=== PATIENT | female | born 1980 | race Caucasian/White ===

== ENCOUNTER 2016-08-04 19:08 | Emergency (ER) | payer OTHER ==
--- NOTE | 2016-08-04 21:44 | ED ORDER SUMMARY ---
..... Patient: MARLYN RILEY OrderSheet [facility] VisitID: [id number] [address] [place] [address] 36y, F Registration Date/Time: 08/04/2016 ORDER SHEET Weight: 97.9 kg (stated) Allergies: Vancomycin, Erythromycin GENERAL ORDERS: CBC w Diff Urgent (19:31 08/04/2016 HBivens A.R.N.P.) (Ack 19:37 CHagerty ER Booth Supervisor) (20:14 SRoberts R.N.) CMP Urgent (19:08/04/2016 HBivens A.R.N.P.) (Ack 19:37 CHagerty ER Booth Supervisor) (20:14 SRoberts R.N.) UA-Culture if indicated Urgent (19:08/04/2016 HBivens A.R.N.P.) (Ack 19:37 CHagerty ER Booth Supervisor) (19:38 JDeElena R.N.) Amylase Urgent (19:31 08/04/2016 HBivens A.R.N.P.) (Ack 19:37 CHagerty ER Booth Supervisor) (20:14 SRoberts R.N.) Lipase Urgent (19:08/04/2016 HBivens A.R.N.P.) (Ack 19:37 CHagerty ER Booth Supervisor) (20:14 SRoberts R.N.) Urine Urgent (19:08/04/2016 HBivens A.R.N.P.) (Ack 19:37 CHagerty ER Booth Supervisor) (19:38 JDeElena R.N.) Pelvic Exam Setup (19:31 08/04/2016 HBivens A.R.N.P.) (Ack 19:37 CHagerty ER Booth Supervisor) (19:38 NHouse ER Tech1) GC/Chlamydia (Cervix) (cervix) Urgent (19:58 08/04/2016 HBivens A.R.N.P.) (Ack 20:09 CHagerty ER Booth Supervisor) (20:15 SRoberts R.N.) Wet Prep (Cervix) (cervix) Urgent (19:59 08/04/2016 HBivens A.R.N.P.) (Ack 20:09 CHagerty ER Booth Supervisor) (20:15 SRoberts R.N.) US OB 1st Trimester w Transvag (unknown) Urgent (20:51 08/04/2016 HBivens A.R.N.P.) (Ack 20:54 CHagerty ER Booth Supervisor) (21:45 Izabella) Type & Rh Urgent (20:51 08/04/2016 HBivens A.R.N.P.) (Ack 20:54 CHagerty ER Booth Supervisor) (21:25 ALawrence ER Tech1) Serum Quantitative Urgent (20:51 08/04/2016 HBivens A.R.N.P.) (Ack 20:54 CHagerty ER Booth Supervisor) (21:25 ALawrence ER Tech1) Vitals (Temp) (21:47 08/04/2016 HBivens A.R.N.P.) (Ack 21:51 JDeElena R.N.) (22:00 JAlanElena R.N.) MEDICATION ORDERS: IV FLUIDS: IV NS : initial bolus 1000 mL (1000 mL/hr), then none - (NOW) (19:31 08/04/2016 HBivens A.R.N.P.) (20:15 SRoberts R.N.) Zofran IV 4 mg (NOW) (19:31 08/04/2016 HBivens A.R.N.P.) (Ack 20:16 SRoberts R.N.) (21:52 SRoberts R.N.) IV Saline Lock (19:31 08/04/2016 HBivens A.R.N.P.) (20:15 SRoberts R.N.) ORDER SHEET NOTES: [Electronically signed by Melchor Jessica R.N. (22:01 08/04/2016)] [Electronically signed by Gina BellamyR.N.P. (22:16 08/04/2016)] [Electronically locked/signed by Melchor Jessiac R.N. (22:08/04/2016)]
--- NOTE | 2016-08-04 21:44 | ED ORDER SUMMARY ---
..... Patient: MARLYN RILEY OrderSheet [facility] VisitID: [id number] [address] [place] [address] 36y, F Registration Date/Time: 08/04/2016 ORDER SHEET Weight: 97.9 kg (stated) Allergies: Vancomycin, Erythromycin GENERAL ORDERS: CBC w Diff Urgent (19:31 08/04/2016 HBivens A.R.N.P.) (Ack 19:37 CHagerty ER Binding Cementer French Cord) (20:14 SRoberts R.N.) CMP Urgent (19:08/04/2016 HBivens A.R.N.P.) (Ack 19:37 CHagerty ER Binding Cementer French Cord) (20:14 SRoberts R.N.) UA-Culture if indicated Urgent (19:08/04/2016 HBivens A.R.N.P.) (Ack 19:37 CHagerty ER Binding Cementer French Cord) (19:38 JDeElena R.N.) Amylase Urgent (19:31 08/04/2016 HBivens A.R.N.P.) (Ack 19:37 CHagerty ER Binding Cementer French Cord) (20:14 SRoberts R.N.) Lipase Urgent (19:08/04/2016 HBivens A.R.N.P.) (Ack 19:37 CHagerty ER Binding Cementer French Cord) (20:14 SRoberts R.N.) Urine Urgent (19:08/04/2016 HBivens A.R.N.P.) (Ack 19:37 CHagerty ER Binding Cementer French Cord) (19:38 JDeElena R.N.) Pelvic Exam Setup (19:31 08/04/2016 HBivens A.R.N.P.) (Ack 19:37 CHagerty ER Binding Cementer French Cord) (19:38 NHouse ER Tech1) GC/Chlamydia (Cervix) (cervix) Urgent (19:58 08/04/2016 HBivens A.R.N.P.) (Ack 20:09 CHagerty ER Binding Cementer French Cord) (20:15 SRoberts R.N.) Wet Prep (Cervix) (cervix) Urgent (19:59 08/04/2016 HBivens A.R.N.P.) (Ack 20:09 CHagerty ER Binding Cementer French Cord) (20:15 SRoberts R.N.) US OB 1st Trimester w Transvag (unknown) Urgent (20:51 08/04/2016 HBivens A.R.N.P.) (Ack 20:54 CHagerty ER Binding Cementer French Cord) (21:45 Izabella) Type & Rh Urgent (20:51 08/04/2016 HBivens A.R.N.P.) (Ack 20:54 CHagerty ER Binding Cementer French Cord) (21:25 ALawrence ER Tech1) Serum Quantitative Urgent (20:51 08/04/2016 HBivens A.R.N.P.) (Ack 20:54 CHagerty ER Binding Cementer French Cord) (21:25 ALawrence ER Tech1) Vitals (Temp) (21:47 08/04/2016 HBivens A.R.N.P.) (Ack 21:51 JDeElena R.N.) (22:00 JAlanElena R.N.) MEDICATION ORDERS: IV FLUIDS: IV NS : initial bolus 1000 mL (1000 mL/hr), then none - (NOW) (19:31 08/04/2016 HBivens A.R.N.P.) (20:15 SRoberts R.N.) Zofran IV 4 mg (NOW) (19:31 08/04/2016 HBivens A.R.N.P.) (Ack 20:16 SRoberts R.N.) (21:52 SRoberts R.N.) IV Saline Lock (19:31 08/04/2016 HBivens A.R.N.P.) (20:15 SRoberts R.N.) ORDER SHEET NOTES: [Electronically signed by Melchor Jessica R.N. (22:01 08/04/2016)] [Electronically signed by Gina BellamyR.N.P. (22:16 08/04/2016)] [Electronically locked/signed by Melchor Jessica R.N. (22:08/04/2016)]
--- NOTE | 2016-08-04 21:44 | ED NURSING NOTES ---
Clinical Report - Nurses [facility] [address] [place] [address] 08/04/2016 19:11 Patient: MICA RILEY TRIAGE Triage time 19:25. Acuity: LEVEL 3. Chief Complaint: ABDOMINAL PAIN and (Onset this morning. Located on R side of abdomen, reports pain is shooting down leg. Says pain is worse than her natural child , pain comes in waves. Reports she has been bled 5 times in the last month and she did have a positive at home test. States she recently treated self for yeast infection. States she recently broke up with her boyfriend because he was cheating on her, unsure if she has STI. She says she has had numerous miscarriages before but this is not what it feels like.). Alert. SEPSIS SCREEN: Sepsis Screen: negative. --19:34 Melchor Jessica R.N. 19:24 08/04/16. BP: 123/79 (regular adult cuff) taken on the left arm, via an automated monitor, while lying. HR: 91 (normal rate). RR: 16 (regular, unlabored and normal). O2 saturation: 98% on room air. Temp: 100.3 F (oral). Pain level now: 8/10. --19:34 Melchor Jessica R.N. Weight: 97.9 kg stated. Height/Length: 63 inches Per Patient. BMI: 38.2. --19:27 Melchor Jessica R.N. Medications Anxiolytic (Cymbalta or Celexa). --19:32 Melchor Jessica R.N. Allergies Vancomycin.(Anaphylaxis) --19:33 Melchor Jessica R.N. Erythromycin. ("shuts kidneys down.") --19:33 Melchor Jessica R.N. Medication/allergy information source: the patient. --19:34 Melchor Jessica R.N. History Arrived by private vehicle. Historian: patient. Accompanied by family. Primary physician (Dr. Jeronimo at [facility]). This started today. She has had nausea and vomiting. She has had pelvic pain (Describes pain as labor pain.). The pain has been in the right lower quadrant. No chills, fever, sweating episodes, difficulty with urination or vaginal discharge. No vaginal discomfort. Treatment DISTRIBUTION CENTER MANAGER: None. PAST MEDICAL HX: 10. Para 2. Abortions 8. Sexual history - sexually active. Currently . SOCIAL HX: Current every day heavy tobacco smoker (cigarette)- less than 1 pack per day. History of drug use: marijuana. Recently used drugs today. No alcohol use. She has not traveled outside the [place] The patient was not exposed to MRSA. No infectious disease exposure. ABUSE ASSESSMENT: Abuse assessment: The patient was asked "Do you feel safe in your home?" and "Has anyone hurt you or threatened to hurt you?". No report of abuse. SELF HARM ASSESSMENT: A self harm assessment was performed. The patient answered "no" to the question "Do you have thoughts of harming or killing yourself?" and "Have you recently had thoughts about harming or killing others?". FALL RISK ASSESSMENT: Fall risk assessment completed. No fall risk identified. NUTRITIONAL RISK ASSESSMENT: The nutritional risk assessment revealed no deficiencies. FUNCTIONAL ASSESSMENT: Functional assessment: no impairments noted. LEARNING NEEDS ASSESSMENT: The learning needs assessment revealed no barriers. SKIN INTEGRITY ASSESSMENT: Skin integrity risk assessment completed. No skin integrity risk identified. --19:34 Melchor Jessica R.N. PROBLEMS: Anxiety Reaction. --19:33 Melchor Jessica R.N. ADDITIONAL SURGERIES: Cholecystectomy. --19:33 Melchor Jessica R.N. Assessment GENERAL / NEURO / PSYCH: Alert. Oriented X 4. Appears in pain. [place] Coma Scale: 15- eyes open spontaneously (4); best verbal response- oriented x 4 (5); best motor response- obeys commands (6). Patient appears calm and cooperative. RESPIRATORY: Respirations not labored. SKIN: Skin is warm and dry. --19:34 Melchor Jessica R.N. Interventions ID band on patient. To treatment room. --19:34 Melchor Jessica R.N. NURSING PROGRESS NOTES The initial plan of care for this patient has been created This plan of care was discussed with the patient. Pulse oximeter and NIBP monitor placed on patient. Patient gowned. Warming measures: blanket applied. Reassurance given to the patient. Two patient identifiers checked. Call light placed in reach. Side rails up x 1. Bed placed in lowest position. Brakes of bed on. --19:34 Melchor Jessica R.N. Patient ID band checked for patient name and birthdate. Instructions provided to collect clean catch urine and patient verbalized understanding. Clean catch urine collected with return of yellow-colored cloudy urine; sample sent to lab for urinalysis and HCG. Specimen labeled in the presence of the patient. --19:38 Melchor Jessica R.N. 20:05 08/04/2016 Site #1 started via IV in the right antecubital space with an 20g angiocath, with aseptic technique and good blood return; one attempt. Blood drawn: rainbow set. Labeled in the presence of the patient and sent to the lab. Saline lock flushed. --20:15 Clary Minaya R.N. 20:05 08/04/2016 Started bag #1 1000 mL IV Fluids IV NS (Saline); at 1000 mL/hr over 1 hour(s) via site #1 via IV pump. Allergies verified and confirmed 5 rights. IV patency established. IV site checked: no pain, redness, or swelling. IV flushed thoroughly pre- and post-medication administration. --20:15 Clary Minaya R.N. 20:40 08/04/16. BP: 107/49. HR: 72. RR: 16. O2 saturation: 99%. --20:44 Ruby Ge ER Tech1 20:05 08/04/2016 Zofran (Ondansetron HCl) IVP 4 mg given over 1 minute(s) via site #1. Allergies verified and confirmed 5 rights. IV patency established. IV site checked: no pain, redness, or swelling. IV flushed thoroughly pre- and post-medication administration. IVP given by RN. --21:52 Clary Minaya R.N. 21:52 08/04/16. BP: 124/68. HR: 97. RR: 16. O2 saturation: 98%. Pain level now 12/09. --21:54 Ruby Ge, SHAHZAD Tech1 22:00 08/04/2016 Zofran IVP Response: no adverse reaction pain is improving. Symptoms have improved. --22: Melchor Jessica R.N. 22:08/04/2016 IV Fluids IV NS Discontinued: bag #1 completed upon discharge. Total amount infused: 1000 mL. IV patency established. IV site checked: no pain, redness, or swelling. IV flushed thoroughly. --22: Melchor Jessica R.N. DISPOSITION / DISCHARGE Departure time: 21:57. Condition at departure: stable. The goals identified in the patient's plan of care were met. No learning barriers present. Discharge instructions provided and reviewed with the patient. Reviewed medication(s) side effects, precautions, dosing and course information. Prescription(s) given to the patient (Mica verbalizes importance of not driving and/or operating heavy machinery while taking muscle relaxants. She verbalizes safe, proper use for optimal pain management at home.). Activity restrictions (rest) reviewed. Patient verbalized understanding. Written instructions provided in Croatian. ( Mica verbalizes understanding of all d/c instructions including need to f/u with PCP. She has no questions and voices no concerns at this time.). The patient was discharged by the nurse practitioner. She was discharged home and unaccompanied at time of discharge. She left the Emergency Department ambulatory and via private vehicle. Patient driving. NAEL COMA SCORE: [place] Coma Scale: 15- eyes open spontaneously (4); best verbal response- oriented x 4 (5); best motor response- obeys commands (6). --21:57 Melchor Jessica R.N. 22:00 08/04/2016 Site #1 removed upon discharge. Catheter intact. Bandaid applied (Bleeding controlled.). --: Melchor Jessica R.N. ( See Progress Notes for D/C VS.). --22: Melchor Jessica R.N. 22:00 08/04/16. BP: deferred. HR: deferred. RR: deferred. O2 saturation: deferred. Temp: deferred. Pain level now deferred. --22: Melchor Jessica R.N. Locked/Released at 08/04/2016 22:01 by Melchor Jessica R.N.
--- NOTE | 2016-08-04 21:44 | ED CLINICAL REPORT ---
Clinical Report - Physicians/Mid Levels [facility] [address] [place] [address] 08/04/2016 19:11 Patient: MARLYN RILEY Time Seen: 19:20; initial patient contact, initial documentation, patient care assumed. Arrived- By private vehicle. Historian- patient. HISTORY OF PRESENT ILLNESS Chief Complaint: ABDOMINAL PAIN. At its maximum, severity described as severe. When seen in the E.D., severity described as severe. Modifying factors. Not worsened by anything. Not relieved by anything. 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 It is described as "pain", sharp and stabbing. It is described as located in the right flank and the right abdomen, right lower quadrant and right pelvis and radiating to the right lower back. The patient has had nausea. No loss of appetite or diarrhea. She has had severe vomiting (today). The vomiting has occurred numerous times and has been bilious. No feculent emesis, blood-tinged emesis, coffee-grounds emesis, frankly bloody emesis or unusually dark emesis. (also concerned about std, because partner cheated on her, but denies any vag dc). No recent travel. Similar symptoms previously: None. Recent medical care: Not recently seen/assessed. REVIEW OF SYSTEMS No constipation, black stools, hematemesis, difficulty with urination or pain with urination. No urinary frequency, bloody stools, fever, chest pain or difficulty breathing. She has had abnormal bleeding (no bleeding now, irregular periodss that last 2 mos). Her periods have been recently irregular and more frequent than normal. She has had bleeding between periods. No abdominal pain. No control. She is not postmenopausal. Currently : , pt states this is at least her 10th or more In 1st trimester. confirmed with home test. Has had no care. All systems otherwise negative, except as recorded above. PAST HISTORY See nurses notes. PROBLEMS: Anxiety Reaction. --19:33 Melchor Jessica, RRosioN. ADDITIONAL SURGERIES: Cholecystectomy. --19:33 Melchor Jessica R.N. Recovering substance abuse (heroin). SOCIAL HISTORY Heavy tobacco smoker. History of heavy drug use: marijuana. No alcohol use. No recent travel. Is a local resident. FAMILY HISTORY Negative. ADDITIONAL NOTES The nursing notes have been reviewed with agreement regarding the chief complaint, HPI, ROS, PMH and patient medications and allergies. PHYSICAL EXAM Vital Signs: 08/04/2016 19:24 BP: 123/79. HR: 91. RR: 16. O2 saturation: 98%. Temp: 100.3 F. Pain level now: 8/10. Have been reviewed as abnormal and appear to be correct. Blood pressure normal. Heart rate normal. Respiratory rate normal. Febrile. Oxygen saturation normal. Appearance: Alert. Oriented X3. No acute distress. Eyes: Pupils equal, round and reactive to light. Eyes normal inspection. Neck: Normal inspection. Neck supple. CVS: Normal heart rate and rhythm. Heart sounds normal. Pulses normal. Respiratory: No respiratory distress. Breath sounds normal. Chest nontender. Abdomen: Soft and nontender. Bowel sounds normal. No organomegaly. No mass. Back: Normal inspection. : Normal external exam. Speculum exam abnormal. Slight vaginal bleeding, consisting of bright red blood, via the cervical os. No vaginal discharge. Bimanual exam normal. No tenderness present on bimanual exam. Uterus not enlarged. No pelvic mass. Skin: Skin warm and dry. Normal skin color. No rash. Normal skin turgor. Extremities: Extremities exhibit normal ROM. No lower extremity edema. Neuro: Oriented X 3. No motor deficit. No sensory deficit. LABS, X-RAYS, AND EKG Pelvic Sonogram: An ovarian cyst is present. . no viable verbal report from [facility]. Interpretation time: 21:33. Laboratory Tests: UA-Culture if indicated: (DAVID: 08/04/2016 19:35) ( MsgRcvd 08/04/2016 20:19) Final results Test Result Flag Units (Reference) URINE COLOR YELLOW URINE APPEARANCE HAZY URINE GLUCOSE NEGATIVE (NEGATIVE) URINE BILIRUBIN NEGATIVE (NEGATIVE) URINE KETONE NEGATIVE (NEGATIVE) URINE SPECIFIC GRAVITY 1.015 (1.010-1.030) URINE PH >= 9.0 H (5.0-8.0) URINE PROTEIN NEGATIVE (NEGATIVE) URINE UROBILINOGEN 1.0 EU/dL (0.2-1.0) URINE NITRITE NEGATIVE (NEGATIVE) URINE BLOOD NEGATIVE (NEGATIVE) URINE LEUK ESTERASE NEGATIVE (NEGATIVE) URINE RBC 1-3 rbc/hpf (0-1) URINE WBC 1-3 wbc/hpf (0-1) URINE EPITHELIAL CELLS RARE EPI/hpf (0-5) URINE BACTERIA NONE SEEN (NONE SEEN) URINE COMMENT CULT NOT INDICATED URINE CULTURES ARE SET-UP BASED ON THE FOLLOWING CRITERIA:POSITIVE NITRITEPOSITIVE LEUKOCYTE ESTERASEGREATER THAN 10 WHITE BLOOD CELLSMODERATE (2+) OR GREATER BACTERIA Urine: (DAVID: 08/04/2016 19:35) ( [facility] 08/04/2016 19:49) Final results Test Result Flag Units (Reference) URINE POSITIVE CBC w Diff: (DAVID: 08/04/2016 20:15) ( [facility] 08/04/2016 20:44) Final results Test Result Flag Units (Reference) WHITE BLOOD COUNT 10.1 K/uL (4.5-11.5) RED BLOOD COUNT 4.21 M/uL (4.00-5.20) HEMOGLOBIN 12.9 gm/dL (12.0-16.0) HEMATOCRIT 38.3 % (36.0-46.0) MEAN CELL VOLUME 91 fL (80-100) MEAN CORPUSCULAR HGB 31 pg (26-34) MEAN CORPUSCULAR HGB CONC 34 g/dL (31-37) RED CELL DISTRIBUTION WIDTH 13.2 % (11.6-14.8) PLATELET COUNT 246 K/uL (150-400) NEUTROPHIL % 66.7 % (50-75) LYMPH % 26.9 % (25-40) MONO % 4.3 % (3-14) EOSINOPHIL % 1.3 % (0-4) BASOPHIL % 0.8 % (0-2) Serum Quantitative: (DAVID: 08/04/2016 20:15) ( [facility] 08/04/2016 21:18) Final results Test Result Flag Units (Reference) BETA HCG, QUANTITATIVE 266 mIU/mL REFERENCE RANGE:Adult Males: <2 mIU/mLNon- Females: <6 mIU/mL Females:Approximate Approximate hCGGestational Age Range (mIU/mL) 0-1 week 0-501-2 weeks 40-3002-3 weeks 100-97315-4 weeks 500-79961-1 months 5,000-200,0002-3 months 10,000-100,0002nd trimester 3,000-50,0003rd trimester 1,000-50,000 CMP: (DAVID: 08/04/2016 20:15) ( MsgRcvd 08/04/2016 20:47) Final results Test Result Flag Units (Reference) GLUCOSE 106 mg/dL (70-110) BUN 14 mg/dL (7-18) CREATININE 0.8 mg/dL (0.6-1.3) Estimated GFR >60 mL/min Estimated GFR- >60 mL/min Note: Persistent reduction over 3 months in eGFR<60 mL/min/1.73 m2 defines CKD. Patients with eGFR values>=60 mL/min/1.73 m2 may also have CKD if evidence ofpersistent proteinuria. Additional information may be foundat www.kidney.org. SODIUM 142 mmol/L (136-145) POTASSIUM 3.5 mmol/L (3.5-5.1) CHLORIDE 107 mmol/L (98-107) CARBON DIOXIDE 27 mmol/L (21-32) CALCIUM 8.6 mg/dL (8.5-10.1) TOTAL PROTEIN 6.7 g/dL (6.4-8.2) ALBUMIN 3.3 g/dL (3.3-5.0) BILIRUBIN, TOTAL 0.2 mg/dL (0.0-1.0) ALKALINE PHOSPHATASE 58 U/L (46-116) AST (SGOT) 7 L U/L (15-37) ALT (SGPT) 19 U/L (12-78) LIPASE 150 U/L (73-393) AMYLASE 45 U/L (25-115) Wet Prep: (DAVID: 08/04/2016 20:00) ( MsgRcvd 08/04/2016 20:56) Final results SPECIMEN DESCRIPTION: CERVIX Test Result Flag Units (Reference) WET MOUNT CLUE CELLS:: NONE EPITHELIAL CELLS: 2+ -- SOURCE?: CERVIX WHITE BLOOD CELLS: 1+ TRICHOMONAS:: NONE -- YEAST:: NONE Type & Rh: (DAVID: 08/04/2016 20:15) ( MsgRcvd 08/04/2016 21:33) Final results Test Result Flag Units (Reference) PATIENT BLOOD TYPE B Positive . PROGRESS AND PROCEDURES Course of Care: 2049. pt updated with current lab results and us ordered, pt was resting quietly, with light off pt asking for rx robaxin. Patient counseled in person regarding the patient's stable condition, test results and diagnosis. 21:34. Differential Diagnosis: I considered gastritis, gastroenteritis, gastroesophageal reflux disease, acute appendicitis, diverticulitis, Crohn's disease, biliary colic, cholecystitis, cholelithiasis, hepatitis, pancreatitis, common bile duct obstruction, urinary tract infection, ureterolithiasis, ovarian cyst, ovarian torsion, , ectopic , pelvic inflammatory disease, endometriosis and viral syndrome as a possible cause of abdominal pain in this patient. This is a partial list of diagnoses considered. Above considerations are based on history, physical exam and laboratory data. Differential diagnosis was discussed with patient. Disposition: Discharged home in good and unchanged condition (21:44). Condition: good and stable. CLINICAL IMPRESSION 08/04/2016 20:40 BP: 107/49. HR: 72. RR: 16. O2 saturation: 99%. Vital Signs: have been reviewed as normal and appear to be correct. Complete spontaneous (miscarriage). Positive test in the emergency department. Ultrasound demonstrated an intrauterine .No complications. Acute fever. Single simple right ovarian cyst. No ruptured ovarian cyst or polycystic ovarian disease. Acute right lower quadrant abdominal pain. INSTRUCTIONS Warnings: GENERAL WARNINGS: Return or contact your physician immediately if your condition worsens or changes unexpectedly, if not improving as expected, or if other problems arise. SPECIFICALLY, return if you develop pain in the abdomen or pelvis, fever, the inability to keep fluids down, blood in vomitus, blood in diarrhea, fainting or lightheadedness. Prescription Medications: Robaxin 750 mg: Take 2 orally every 6 hours as needed for muscle spasm. Dispense thirty (30). No refills. Substitution is permissible. Follow-up: Follow up with your doctor in about two days even if well. Call for an appointment. Summary of care provided to patient. Understanding of the discharge instructions verbalized by patient. (Electronically signed by Gina Bellamy A.R.NMessi 08/04/2016 22:16)
--- NOTE | 2016-08-04 22:17 | ED MED RECONCILIATION SUMMARY ---
Patient: MARLYN RILEY Medication Reconciliation Report [facility] VisitID: [id number] [address] [place] [address] 36y, F Registration Date/Time: 08/04/2016 Weight: 97.9 kg Height/Length: 63 in. BMI: 38.2 ALLERGIES: Erythromycin, Vancomycin The patient's Home Medications are listed below: THE FOLLOWING MEDICATIONS NEED TO BE RECONCILED: Anxiolytic (Cymbalta or Celexa) The source(s) of the original Home Medication information: patient The following Medications were given to the patient in the Emergency Department: IV NS IV Fluids bolus 0, then 1000 mL/hr, administered: 08/04/2016 8:05:00 PM Zofran [IVP] IVP 4 mg, administered: 08/04/2016 8:05:00 PM The following Medications were prescribed to the patient: Robaxin 750 mg: Take 2 orally every 6 hours as needed for muscle spasm. Dispense thirty (30). No refills. Substitution is permissible. -- Gina Bellamy A.R.N.P.
--- NOTE | 2016-08-04 22:17 | ED MED RECONCILIATION SUMMARY ---
Patient: MARLYN RILEY Medication Reconciliation Report [facility] VisitID: [id number] [address] [place] [address] 36y, F Registration Date/Time: 08/04/2016 Weight: 97.9 kg Height/Length: 63 in. BMI: 38.2 ALLERGIES: Erythromycin, Vancomycin The patient's Home Medications are listed below: THE FOLLOWING MEDICATIONS NEED TO BE RECONCILED: Anxiolytic (Cymbalta or Celexa) The source(s) of the original Home Medication information: patient The following Medications were given to the patient in the Emergency Department: IV NS IV Fluids bolus 0, then 1000 mL/hr, administered: 08/04/2016 8:05:00 PM Zofran [IVP] IVP 4 mg, administered: 08/04/2016 8:05:00 PM The following Medications were prescribed to the patient: Robaxin 750 mg: Take 2 orally every 6 hours as needed for muscle spasm. Dispense thirty (30). No refills. Substitution is permissible. -- Gina Bellamy A.R.N.P.
--- NOTE | 2016-08-04 22:17 | ED MAR SUMMARY ---
..... Medication Administration Record [facility] [address] [place] [address] Patient: MARLYN RILEY Visit ID: [id number] 36y, F Weight: 97.9 kg Height/Length: 63 in BMI: 38.2 ALLERGIES: Erythromycin, Vancomycin Start 20:05 08/04/2016 Clary Minaya R.N., Stop 22:00 08/04/2016 Melchor Jessica R.N. Medication Administered: IV NS (SALINE), Dose: IV Fluids over 1 hour(s), Rate: 1000 mL/hr, Dispensed: 1000 mL bag, Site: #1 right AC. Medication Ordered: IV NS : initial bolus 1000 mL (1000 mL/hr), then none - (NOW). Given 20:05 08/04/2016 Clary Minaya RMargie Medication Administered: ZOFRAN [IVP] (ONDANSETRON HCL), Dose: 4 mg IVP over 1 minute(s), Site: #1 right AC. Medication Ordered: Zofran IV 4 mg (NOW).
--- NOTE | 2016-08-04 22:17 | ED DISCHARGE INSTRUCTIONS ---
Patient: MARLYN RILEY General Instructions [facility] VisitID: [id number] [address] [place] [address] 36y, F Registration Date/Time: 08/04/2016 08/04/2016 20:40 BP: 107/49. HR: 72. RR: 16. O2 saturation: 99%. Vital Signs: have been reviewed as normal and appear to be correct. Complete spontaneous (miscarriage). Positive test in the emergency department. Ultrasound demonstrated an intrauterine .No complications. Acute fever. Single simple right ovarian cyst. No ruptured ovarian cyst or polycystic ovarian disease. Acute right lower quadrant abdominal pain. INSTRUCTIONS Warnings: GENERAL WARNINGS: Return or contact your physician immediately if your condition worsens or changes unexpectedly, if not improving as expected, or if other problems arise. SPECIFICALLY, return if you develop pain in the abdomen or pelvis, fever, the inability to keep fluids down, blood in vomitus, blood in diarrhea, fainting or lightheadedness. Prescription Medications: Robaxin 750 mg: Take 2 orally every 6 hours as needed for muscle spasm. Dispense thirty (30). No refills. Substitution is permissible. Follow-up: Follow up with your doctor in about two days even if well. Call for an appointment. Summary of care provided to patient. Understanding of the discharge instructions verbalized by patient. ADDITIONAL INFORMATION Abdominal Pain,Possible Appendicitis [Repeat Exam, Female] Based on your visit today, the exact cause of your abdominal (stomach) pain is not certain. However, you do have some of the early signs of APPENDICITIS. Early in an appendix infection the symptoms can be similar to a simple "stomach ache" or "stomach flu". Therefore, the diagnosis can be hard to make. Since an appendix infection is a serious condition, it is important to know if this is the cause of your symptoms. WAITING for more time to pass and repeating the exam is the best way to find out whether you have appendicitis. Within the next 12-24 hours the cause of your stomach pain should become clear. It is important for you to watch for any new symptoms or worsening of your condition. (See below). Home Care: Rest until your next exam. No strenuous activities. Eat a diet low in fiber (called a low-residue diet). Foods allowed include refined breads, white rice, fruit and vegetable juices without pulp, tender meats. These foods will pass more easily through the intestine. Avoid whole-grain foods, whole fruits and vegetables, meats, seeds and nuts, fried or fatty foods, dairy, alcohol and spicy foods until your symptoms go away. In some cases, you may be asked not to eat or drink anything until you are re-examined. Return for another exam exactly as directed. Follow Up with your doctor or this facility as directed. Get Prompt Medical Attention if any of the following occur: Pain gets worse or moves to the right lower abdomen New or worsening vomiting or diarrhea Swelling of the abdomen Unable to pass stool for more than three days Fever of 100.4F (38C) or higher, or as directed by your healthcare provider Blood in vomit or bowel movements (dark red or black color) Weakness, dizziness or fainting Unexpected vaginal bleeding Ovarian Cyst The ovary is a small organ located on each side of the uterus. During each menstrual cycle a tiny egg sac forms in the ovary. If the egg is released but does not occur, this sac usually dissolves. Sometimes, the sac may fill with fluid. It then enlarges into a painful cyst. Usually the cyst will rupture or shrink on its own. In either case, the pain gradually goes away over the next 1-3 days. If the cyst does not shrink or rupture, it may cause continued pain. Home Care: Rest in bed and avoid heavy exertion until you are feeling better. Heat to the lower abdomen usually helps (heating pad or hot packs -- a small towel soaked in hot water). You may use acetaminophen (Tylenol) or ibuprofen (Motrin, Advil) to control pain, unless another pain medicine was prescribed. [NOTE: If you have chronic liver or kidney disease or ever had a stomach ulcer or GI bleeding, talk with your doctor before using these medicines.] Follow Up: See your doctor within the next 2-3 days if your pain doesnt improve. Otherwise, follow up with your doctor after your next period or as directed by our staff. Get Prompt Medical Attention if any of the following occur: Pain worsens or fails to respond to the above measures Fever of 100.4F (38C) or higher, or as directed by your healthcare provider Heavy vaginal bleeding (soaking one pad an hour for three hours) You feel weak or dizzy Fainting Passage of a pink or steele tissue with menstrual bleeding Miscarriage, Spontaneous (Completed) Todays exam shows that your has ended suddenly. While this may be an emotionally difficult time for you, know that it is not an uncommon event. A miscarriage can be due to various causes. These include a problem with the babys chromosomes (genes that carry the information needed for life) or with fertilization or implantation that didnt happen correctly. In most cases no cause can be found. Be assured that this miscarriage was not the result of anything that you did wrong, and it will not interfere with your ability to become in the future. It appears that your miscarriage is complete and all tissue from the has passed. If there are parts of the tissue that remain in the uterus, you will probably have more cramping and bleeding. Home Care: You may resume normal activities if you are not having heavy bleeding or pain. Until the bleeding stops completely and to prevent infection: Do not have sexual intercourse for as long as your healthcare provider tells you. Use sanitary pads instead of tampons. Do not douche. If you feel sadness or grief, it may help to talk about your feelings with family and friends, or with a counselor. Follow Up: Make an appointment to see your doctor in the next one to two weeks for a checkup. If cramping and bleeding return and continue for more than a few days, call your doctor or return here for an exam. The doctor may need to remove remaining tissue from the uterus to stop the bleeding and prevent infection. Or, you may be prescribed medication to take at home to help your body expel the remaining tissue. Note: If you had an ultrasound it will be reviewed by a specialist. You will be notified of any new findings that may affect your care. Get Prompt Medical Attention if any of the following occur: Heavy bleeding (soaking one new pad an hour over three hours) Bleeding that does not stop after ten days Foul-smelling vaginal discharge Fever of 100.4F (38C) or higher, or as directed by your healthcare provider Increasing lower abdominal pain Weakness, dizziness, or fainting Methocarbamol Oral tablet What is this medicine? METHOCARBAMOL (meth oh MATT ba mole) helps to relieve pain and stiffness in muscles caused by strains, sprains, or other injury to your muscles. How should I use this medicine? Take this medicine by mouth with a full glass of water. Follow the directions on the prescription label. Take your medicine at regular intervals. Do not take your medicine more often than directed. Talk to your turbine attendant regarding the use of this medicine in children. Special care may be needed. What side effects may I notice from receiving this medicine? Side effects that you should report to your doctor or health child care giver as soon as possible: allergic reactions like skin rash, itching or hives, swelling of the face, lips, or tongue blurred vision or changes in vision confusion fainting spells fever nausea or vomiting seizures Side effects that usually do not require medical attention (report to your doctor or health child care giver if they continue or are bothersome): dizziness drowsiness headache metallic taste What may interact with this medicine? alcohol or medicines that contain alcohol cholinesterase inhibitors like neostigmine, ambenonium, and pyridostigmine bromide other medicines that cause drowsiness What if I miss a dose? If you miss a dose, take it as soon as you can. If it is almost time for your next dose, take only the next dose. Do not take double or extra doses. Where should I keep my medicine? Keep out of the reach of children. Store at room temperature between 20 and 25 degrees C (68 and 77 degrees F). Keep container tightly closed. Throw away any unused medicine after the expiration date. What should I tell my health care provider before I take this medicine? They need to know if you have any of these conditions: kidney disease seizures an unusual or allergic reaction to methocarbamol, other medicines, foods, dyes, or preservatives or trying to get breast-feeding What should I watch for while using this medicine? You may get drowsy or dizzy. Do not drive, use machinery, or do anything that needs mental alertness until you know how this medicine affects you. Do not stand or sit up quickly, especially if you are an older patient. This reduces the risk of dizzy or fainting spells. Alcohol may interfere with the effect of this medicine. Avoid alcoholic drinks. You have been given the following additional information: Abdominal Pain, Possible Appendicitis (Female) Ovarian Cyst Miscarriage, Spontaneous (Completed) Methocarbamol Oral tablet (Electronically signed by Gina Bellamy A.R.N.P. 08/04/2016 22:16)
--- NOTE | 2016-08-04 22:17 | ED MAR SUMMARY ---
..... Medication Administration Record [facility] [address] [place] [address] Patient: MARLYN RILEY Visit ID: [id number] 36y, F Weight: 97.9 kg Height/Length: 63 in BMI: 38.2 ALLERGIES: Erythromycin, Vancomycin Start 20:05 08/04/2016 Clary Minaya R.N., Stop 22:00 08/04/2016 Melchor Jessica R.N. Medication Administered: IV NS (SALINE), Dose: IV Fluids over 1 hour(s), Rate: 1000 mL/hr, Dispensed: 1000 mL bag, Site: #1 right AC. Medication Ordered: IV NS : initial bolus 1000 mL (1000 mL/hr), then none - (NOW). Given 20:05 08/04/2016 Clary Minaya RMargie Medication Administered: ZOFRAN [IVP] (ONDANSETRON HCL), Dose: 4 mg IVP over 1 minute(s), Site: #1 right AC. Medication Ordered: Zofran IV 4 mg (NOW).
--- NOTE | 2016-08-04 22:45 | DIAGNOSTIC IMAGING REPORT ---
PROCEDURE: US OB 1ST TRIMESTER W/TRANSVAG INDICATION: PAIN, positive test (beta hCG 266) TECHNIQUE: Vieira scale, color, and spectral Doppler transabdominal and endovaginal sonographic images of the uterus were obtained. COMPARISON: None. FINDINGS: TRANSABDOMINAL SCANS: The anteverted uterus demonstrates mildly hyperechoic fundal endometrium. No discrete fluid collection. No suspicious adnexal masses or fluid. TRANSVAGINAL SCANS: Anteverted anteflexed uterus demonstrates mild fundal endometrial thickening measuring approximately 14-15 mm but no evidence of gestational sac. The cervix is closed. Myometrial vascularity is normal. There is a trace amount of fluid anterior to the uterus and in the cul-de-sac. The right ovary measures 4.5 x 2.6 x 3.5 cm and contains a dominant follicle measuring about 2.4 cm. Normal ovarian vascularity. The left ovary measures 3.2 x 1.8 x 3.2 cm and has a normal follicular echotexture and vascular flow. No suspicious adnexal masses or fluid. IMPRESSION: 1. Normal uterus and ovaries but no evidence of intrauterine . 2. Trace amount of simple appearing nonspecific, free pelvic fluid. 3. Given low beta hCG, this may represent early intrauterine , missed , or ectopic . Continued follow-up with serial Beta hCG levels and ultrasound to document intrauterine is recommended.
== END 2016-08-04 21:54 | disposition home or self-care (01) ==
LOC: ED SRH 19:08
DX: O03.9 Complete or unspecified spontaneous abortion without complication (principal); R10.31 Right lower quadrant pain; R50.9 Fever, unspecified; N83.291 Other ovarian cyst, right side; Z88.1 Allergy status to other antibiotic agents; F17.210 Nicotine dependence, cigarettes, uncomplicated
CPT/HCPCS: 90001; 90004; 90100; 90155; 90195; 90197; 91227; 91228; 92235; 92530; 93070; 95059